=== PATIENT | female | born 1995 | race Caucasian/White ===

== ENCOUNTER 2022-06-23 13:27 | Emergency (ER) | payer OTHER ==
[~2022-06-23] VITALS: Ht 152.4 cm; Wt 77.1 kg
[2022-06-23 13:37] VITALS: BP_SYST 140
[2022-06-23 14:00] LABS: BILIRUBIN,URINE NEGATIVE (NEGATIVE); BLOOD, URINE NEGATIVE (NEGATIVE); CLARITY/URINE CLEAR (CLEAR); COLOR,URINE YELLOW (YELLOW); GLUCOSE,URINE NEGATIVE (NEGATIVE); KETONES,URINE TRACE (NEGATIVE); LEUKOCYTE ESTERASE ,URINE TRACE (NEGATIVE); NITRITE, URINE NEGATIVE (NEGATIVE); PROTEIN URINE NEGATIVE (NEGATIVE); UROBILINOGEN,URINE 0.2 (0.2-1.0)
[2022-06-23 14:19] LABS: BACTERIA,URINE FEW /HPF (None Seen); RBC,URINE 0-3 /HPF (0-3)
[2022-06-23 15:32] LABS: BASOPHILS % (AUTO) 0.2 % (0.0-2.0); EOSINOPHILS % (AUTO) 0.4 % (0.0-4.0); HEMOGLOBIN 12.7 g/dL (12.0-16.0); LYMPHOCYTES # (AUTO) 2.2 K/uL (1.0-5.5); LYMPHOCYTES % (AUTO) 26.9 % (20.5-51.5); MEAN CORPUSCULAR HEMOGLOBIN 30 pg (27-31); MEAN CORPUSCULAR HGB CONC 33 % (32-36); MEAN CORPUSCULAR VOLUME 91 fL (79.0-98.0); MONOCYTES # (AUTO) 0.5 K/uL (0.0-1.0); MONOCYTES % (AUTO) 6.7 % (1.7-9.3); NEUTROPHILS # (AUTO) 5.3 K/uL (1.8-7.7); NEUTROPHILS % (AUTO) 65.8 % (40.0-70.0); PLATELET COUNT (AUTO) 311 K/uL (130-430); RED BLOOD CELL COUNT(AUTO) 4.19 MIL/uL (4.2-6.2); RED CELL DISTRIBUTION WIDTH 14.1 % (9.0-15.0); WHITE BLOOD COUNT (AUTO) 8.1 K/uL (4.8-10.8)
[2022-06-23 15:55] LABS: ANION GAP 9 (5-15); CALCIUM 9.1 mg/dL (8.4-11.0); CHLORIDE 104 mmol/L (98-107); CREATININE 0.49 mg/dL (0.55-1.30); GLUCOSE 95 mg/dL (70-99); UREA NITROGEN, BLOOD 12 mg/dL (8-21)
[2022-06-23 15:59] LABS: ALANINE AMINOTRANSFERASE 28 U/L (12-78); ALBUMIN 3.6 g/dL (3.4-4.8); AMYLASE 62 U/L (0-100); ASPARTATE AMINOTRANSFERASE 22 U/L (10-37); C-REACTIVE PROTEIN QUANT < 0.2 mg/dL (0-0.5); LIPASE 132 U/L (73-393); TOTAL BILIRUBIN 0.3 mg/dL (0.0-1.0)
[2022-06-23 16:00] LABS: GFR AFRICAN AMERICAN 198 mL/min (>90)
[2022-06-23] MEDS ORDERED: HYDR-3917 PO (17:12)
[2022-06-23] MEDS ORDERED: IBUP-1969 PO (17:12)
[2022-06-23 17:20] VITALS: BP_SYST 140
== END 2022-06-23 17:21 | disposition home or self-care (01) ==
LOC: SED 13:27
DX: R10.2 Pelvic and perineal pain (principal); R10.31 Right lower quadrant pain; Z88.1 Allergy status to other antibiotic agents; Z79.899 Other long term (current) drug therapy
CPT/HCPCS: 36415; 76376; 80053; 81000; 81025; 82150; 83605; 83690; 84703; 85025; 86140; 99284

== ENCOUNTER 2023-03-17 12:03 | Emergency (ER) | payer MEDICAID, OTHER ==
[~2023-03-17] VITALS: Ht 152.4 cm; Wt 75.7 kg
[~2023-03-17 12:03] MED LIST: HYDR-3917 PO; IBUP-1969 PO
[2023-03-17 12:15] VITALS: BP_SYST 123; PULSE 85; RESP 19; TEMP 98.2; O2SAT 99
[2023-03-17] MEDS ORDERED: CLIN-142 PO (12:36)
[2023-03-17 12:54] VITALS: BP_SYST 123; PULSE 85; RESP 19; TEMP 98.2; O2SAT 99
== END 2023-03-17 12:53 | disposition home or self-care (01) ==
LOC: SED 12:03
DX: L60.0 Ingrowing nail (principal); M79.674 Pain in right toe(s); Z88.1 Allergy status to other antibiotic agents; Z79.899 Other long term (current) drug therapy
CPT/HCPCS: 99283

== ENCOUNTER 2023-05-04 03:02 | Emergency (ER) | payer MEDICAID ==
[~2023-05-04] VITALS: Ht 152.4 cm; Wt 72.6 kg
[~2023-05-04 03:02] MED LIST changes: +CLIN-142 PO
[2023-05-04 03:12] VITALS: BP_SYST 116; PULSE 102; RESP 15; TEMP 97.9; O2SAT 97
[2023-05-04] MEDS ORDERED: CLIN-142 PO (03:27)
[2023-05-04] MEDS ORDERED: NABU-140 PO (03:27)
[2023-05-04] MEDS ORDERED: CLINDAMYCIN HCL 150 MG CAPSULE PO ONE (03:30)
[2023-05-04] MEDS ORDERED: IBUPROFEN 600 MG TABLET PO ONE (03:30)
[2023-05-04 03:33] VITALS: BP_SYST 116; PULSE 102; RESP 15; TEMP 97.9; O2SAT 97
== END 2023-05-04 03:34 | disposition home or self-care (01) ==
LOC: SED 03:02
DX: H66.91 Otitis media, unspecified, right ear (principal); Z88.1 Allergy status to other antibiotic agents; Z79.899 Other long term (current) drug therapy
CPT/HCPCS: 99283